=== PATIENT | female | born 1990 | race Caucasian/White ===

== ENCOUNTER → 2017-02-05 | Outpatient (CLI) | payer BC | END | disposition disaster alternative care site (69) | LOC: GRAD 13:28 | DX: G89.29 Other chronic pain (principal); M47.896 Other spondylosis, lumbar region; M51.46 Schmorl's nodes, lumbar region ==

== ENCOUNTER → 2017-02-25 | Outpatient (CLI) | payer BC | END | disposition disaster alternative care site (69) | LOC: GRAD 13:57 | DX: G89.29 Other chronic pain (principal); M53.3 Sacrococcygeal disorders, not elsewhere classified; N83.201 Unspecified ovarian cyst, right side; N83.202 Unspecified ovarian cyst, left side ==

== ENCOUNTER → 2017-03-24 | Outpatient (CLI) | payer BC ==
--- NOTE | ~2017-03-24 | ECHO ---
Transthoracic Echocardiography Report (TTE) Demographics Patient Name KEENAN LAWLER Date of Study 03/24/2017 Patient Number [id number] Visit Number [id number] Date of 1990 Room Number Accession Number [id number] Gender Female Age 26 year(s) Referring Leela Zaragoza Reji Social Sciences Instructor Latasha Vega RVT Physician Ilan Walker MD Physician Interpreting Lizette Schwab Grain Drier Physician Supervising Ordering Physician Ilan Walker MD, MD/P Nurse Stress Fire Loss Prevention Engineer Conclusions Contractility Score Summary Normal Left Ventricular contractility was noted. Summary The estimated left ventricular EF is >55% with normal WM,internal dimension and mild LVH. Trivial tricuspid regurgitation by color Doppler. Procedure Type of Study TTE procedure:2D Echocardiogram. Procedure Date Date: 03/24/2017 Start: 04:05 PM Study Location: Echo Lab Technical Quality: Adequate visualization Indications:Fatigue. Appropriate Use Criteria: 9 Patient Status: Routine HR: 73 bpm BP: 119/59 mmHg M-Mode/2D Measurements LV Diastolic Dimension: 2.92 cm LV Systolic Dimension: 2.03 cm LV Septum Diastolic: 1.15 cm LV PW Diastolic: 1.11 cm AO Root Dimension: 1.9 cm Cardiac Output: 3.25 l/min AV Cusp Separation: 1.6 cm LVOT: 1.9 cm RV Base: 2.16 cm LVOT VTI: 15.7 cm RV Mid: 2.04 cm LV Stroke volume: 44.49 ml TAPSE: 1.65 cm TDI-S': 11.6 cm/s Doppler Measurements AV Peak Velocity: 1.3 m/s MV Peak E-Wave: 0.85 m/s AV Peak Gradient: 6.76 mmHg MV Peak A-Wave: 0.47 m/s AV Mean Gradient: 4 mmHg MV E/A Ratio: 1.79 LVOT Peak Velocity: 0.87 m/s MV P1/2t: 44 msec TR Gradient:5.66 mmHg PV Peak Velocity: 1.08 m/s PV Peak Gradient: 4.67 mmHg E' Septal Velocity: 0.12 m/s A' Septal Velocity: 0.09 m/s E' Lateral Velocity: 0.16 m/s A' Lateral Velocity: 0.09 m/s Findings Left Ventricle Normal left ventricular function,WM,wall thickness and internal dimension. Right Ventricle Normal right ventricle structure and function. Left Atrium Normal left atrial size. Right Atrium Normal right atrial size. Mitral Valve Normal mitral valve structure and function. Aortic Valve Normal aortic valve structure and function. Tricuspid Valve Trivial tricuspid regurgitation by color Doppler. Pulmonic Valve Normal pulmonic valve structure and function. Pericardial Effusion No evidence of pericardial effusion. Miscellaneous Visualized portions of the aortic root and ascending aorta appear normal in size. Pleural Effusion No evidence of pleural effusion. Contractility Score LV regional wall motion:(0-Non visualized 1-Normal 2-Hypokinesis 3-Akinesis 4-Dyskinesis 5-Aneurysm) Signature dtt: Josselin Bauer dtd: 03/24/17 [id number] Physician Self Edit
--- NOTE | ~2017-03-24 | PUL ---
PATIENT'S NAME: KEENAN LAWLER [facility] AGE: 26 Y [address] ROOM: [place] [address] LOCATION: GRAD ADMIT DATE: 03/24/2017 Pulmonary DISCHARGE DATE: FAMILY PHYSICIAN: JOANNE MALHOTRA MD ATTENDING PHYSICIAN: Denise Talavera NAME OF PROCEDURE: Pulmonary Function Test DATE OF PROCEDURE: March 24, 2017 TECH: MAIRA Sellers REASON FOR EXAM: Auto immune disorder RESULTS: 1. FVC was 4.07 liters which is 92% of predicted and normal, FEV1 was 3.71 liters which is 99% of predicted and normal, and FEV1/FVC was 91% and normal. The flow volume curve did not reveal any significant airflow limitation. After bronchodilator administration FVC increased to 4.14 liters which is a 2% increase and FEV1 decreased to 3.7 liters. FEV1/FVC was 89%. 2. DLCO and adjusted DLCO were 26.8 which is 104% of predicted and normal. 3. Total lung capacity was 5.98 liters which is 97% of predicted and normal, and residual volume was 1.91 liters which is 99% of predicted and normal. PHYSICIAN INTERPRETATION: The patient has no airflow limitation and no significant bronchodilator response. Her diffusion capacity is normal. There is no evidence of restrictive lung disease. Essentially this is a normal pulmonary function test. HÉCTOR MARTINO MD RFFang/adán /[id number] dtt: 03/29/17 0914 , HÉCTOR MARTINO dtd: 03/28/17 2217
== END | disposition disaster alternative care site (69) ==
LOC: GRAD 13:49
DX: I73.00 Raynaud's syndrome without gangrene (principal); R53.83 Other fatigue; R91.8 Other nonspecific abnormal finding of lung field